=== PATIENT | female | born 1980 | race Caucasian/White ===

== ENCOUNTER 2019-12-02 18:28 | Outpatient (REF) | payer BC, SELFPAY ==
[2019-12-02 19:08] LABS: HCT 37.2 % (36.0-46.0); HGB 11.9 g/dL (11.2-15.7); MCH 24.9 pg (27.0-33.0); MCV 77.8 fL (80-95); Platelet Count 345 10^3/uL (130-400); RBC 4.78 10^6/uL (3.93-5.22); RDW 14.6 % (11.7-14.6); RDW-SD 40.8 fL; WBC 10.88 10^3/uL (4.4-10.8)
[2019-12-02 19:12] LABS: Anion Gap 7.4 mmol/L (3-11); BUN 12 mg/dL (7-18); CO2 27.6 mmol/L (21.0-32.0); CREATININE 0.73 mg/dL (0.55-1.02); Calcium 8.6 mg/dL (8.5-10.1); Chloride 104 mmol/L (98-107); Glucose 91 mg/dL (74-106); Potassium 3.4 mmol/L (3.5-5.1); Sodium 139 mmol/L (136-145)
== END 2019-12-02 18:48 ==
LOC: NCHCN 18:28
PROVIDERS: Visit Provider Nurse Practitioner Family
DX: I10 Essential (primary) hypertension (principal); N93.9 Abnormal uterine and vaginal bleeding, unspecified
CPT/HCPCS: 80048; 85027

== ENCOUNTER 2019-12-14 14:28 | Outpatient (REF) | payer BC, SELFPAY ==
[2019-12-14 21:42] LABS: Total Iron Binding Capacity 458 ug/dL (250-450)
[2019-12-14 21:56] LABS: Calculated LDL 117 mg/dL (<100); Cholesterol 188 mg/dL (<200); Ferritin 14 ng/mL (8-252); HDL Cholesterol 59 mg/dL (40-60); Triglyceride 64 mg/dL (<150)
== END 2019-12-14 14:48 ==
LOC: NCHCN 14:28
PROVIDERS: Visit Provider Nurse Practitioner Family
DX: N93.9 Abnormal uterine and vaginal bleeding, unspecified (principal); Z13.220 Encounter for screening for lipoid disorders; Z00.00 Encounter for general adult medical examination without abnormal findings
CPT/HCPCS: 80061; 82728; 83550

== ENCOUNTER 2020-04-04 02:11 | Outpatient (CLI) | payer BC, SELFPAY ==
--- NOTE | 2020-04-04 | DI.US_ITS ---
EXAM: US PELVIS TRANSVAGINAL CLINICAL HISTORY: ABNL MENSTRUAL BLEEDING,N93.9. TECHNIQUE: Transabdominal and transvaginal pelvic ultrasound was performed using standard protocol. COMPARISON: No exams were available for comparison FINDINGS: KIDNEYS: Kidneys are symmetric in size. No evidence of renal calculi. No evidence of hydronephrosis. No renal mass or cyst identified. UTERUS: Position: Retroverted. Size: 7.5 long by 4.5 AP by 5.7 transverse cm Endometrium: 1.0 cm. The endometrial stripe is homogeneously echogenic. This is within normal limits for the patient's age. Myometrium: A 0.7 x 0.5 x 1.2 cm hypoechoic masses seen in the anterior body. This likely reflects a fibroid. Cervix: Unremarkable. OVARIES: Right: 2.8 x 1.5 x 1.8 cm Cyst or mass: Small functional cysts are present. Left: 2.8 x 1.9 x 1.3 cm Cyst or mass: Small functional cysts are present. DOPPLER: Color: Symmetric and uniform flow to both ovaries. No hyperemia. CUL-DE-SAC: Free fluid: None. Other: None. IMPRESSION: 1. Normal sonographic appearance of the kidneys. 2. Normal-appearing uterus with endometrial stripe within normal limits. Small uterine fibroid. 3. Unremarkable bilateral ovaries. DATA REPOSITORY:
== END 2020-04-04 02:12 | disposition home or self-care (01) ==
LOC: DI 02:11
PROVIDERS: PCP Nurse Practitioner Family; Visit Provider Nurse Practitioner Family
DX: N93.9 Abnormal uterine and vaginal bleeding, unspecified (principal); D25.9 Leiomyoma of uterus, unspecified
CPT/HCPCS: 76830; 76856

== ENCOUNTER 2020-04-11 22:49 | Outpatient (REF) | payer BC, SELFPAY ==
[2020-04-11 22:33] LABS: TSH (W/Ref FT4) 1.68 uIU/mL (0.36-3.74)
== END 2020-04-11 22:50 | disposition home or self-care (01) ==
LOC: NCHCN 22:49
PROVIDERS: PCP Nurse Practitioner Family; Visit Provider Nurse Practitioner Family
DX: N93.9 Abnormal uterine and vaginal bleeding, unspecified (principal)
CPT/HCPCS: 84443

== ENCOUNTER 2020-12-24 02:07 | Outpatient (CLI) | payer BC, SELFPAY ==
[2020-12-24 12:20] LABS: Source Nasal/Nares
[2020-12-24 18:23] LABS: COVID-19 PCR Negative (Negative)
== END 2020-12-24 02:08 | disposition home or self-care (01) ==
LOC: LBO 02:08
PROVIDERS: PCP Nurse Practitioner Family; Visit Provider Obstetrics & Gynecology
DX: Z20.822 Contact with and (suspected) exposure to COVID-19 (principal); Z01.818 Encounter for other preprocedural examination
CPT/HCPCS: 87635

== ENCOUNTER 2020-12-24 02:39 | Outpatient (CLI) | payer BC, SELFPAY ==
[2020-12-24 10:47] LABS: Abs Immature Grans 0.05 10^3/uL (0.0-0.06); Absolute Basophil Count 0.03 10^3/uL (0.0-0.2); Absolute Eosinophil Count 0.19 10^3/uL (0.0-0.7); Absolute Lymphocyte Count 2.97 10^3/uL (1.2-3.4); Absolute Monocyte Count 0.62 10^3/uL (0.1-0.8); Absolute Neutrophil Count 7.47 10^3/uL (1.2-6.7); Basophils % 0.3; Eosinophils % 1.7; HCT 36.7 % (36.0-46.0); HGB 12.1 g/dL (11.2-15.7); Immature Grans % 0.4; Lymphocytes % 26.2; MCH 27.7 pg (27.0-33.0); MPV 10.6 fL (8.0-11.0); Monocytes % 5.5; Neutrophils % 65.9; Nucleated RBC 0 %; Platelet Count 384 10^3/uL (130-400); RBC 4.37 10^6/uL (3.93-5.22); RDW 13.2 % (11.7-14.6); RDW-SD 40.7 fL; WBC 11.33 10^3/uL (4.4-10.8)
== END 2020-12-24 02:40 | disposition home or self-care (01) ==
LOC: LBO 02:39
PROVIDERS: PCP Nurse Practitioner Family; Visit Provider Obstetrics & Gynecology
DX: N93.8 Other specified abnormal uterine and vaginal bleeding (principal); D25.9 Leiomyoma of uterus, unspecified; Z01.818 Encounter for other preprocedural examination; Z01.812 Encounter for preprocedural laboratory examination
CPT/HCPCS: 36415; 86850; 86900; 86901; 85025

== ENCOUNTER 2020-12-26 07:57 | Day surgery (SDC) | payer BC, SELFPAY ==
[2020-12-26 08:19] VITALS: BP 119/76; PULSE 94; RESP 16; TEMP 36.8; O2SAT 100
--- NOTE | 2020-12-26 09:05 | W.ANESPRE ---
General Info Date of Service Date Performed: 12/26/20 Height: 5 ft 2 in Weight: 87.1 kg Body Mass Index (BMI): 35.1 Surgical Procedure: Operation Date: 12/26/20 09:25 Proposed Procedures Side Surgeon p Dilation & Curettage with Hysteroscopy,myosure Skye Smith DO Meds Allergies and Home Medications Allergies Allergy/AdvReac Type Severity Reaction Status Date / Time No Known Allergies Allergy Verified 12/26/20 08:10 Home Medication Medication Instructions Recorded chlorthalidone 25 mg tablet 25 mg PO DAILY 05/03/20 ferrous sulfate 325 mg (65 mg 325 mg PO TID 05/03/20 iron) tablet losartan 100 mg tablet 100 mg PO HS 05/03/20 Current Visit Medications: Current Medications Generic Name Dose Route Start Last Admin Trade Name Freq PRN Reason Stop Dose Admin Ringer's Solution 1,000 mls @ 125 mls/hr 12/26/20 06:00 IV 01/24/21 23:59 INFUSION YEIMY IV Miscellaneous Supplies 1 each 12/26/20 06:00 Iv Access IV 01/24/21 23:59 DIRECTED YEIMY Sodium Chloride 0 ml 12/26/20 06:00 Normal Saline Flush 10 Ml Syr IV 01/24/21 23:59 PRN PRN Sodium Chloride 0 ml 12/26/20 06:00 Normal Saline 10 Ml Vial IJ 01/24/21 23:59 DIRECTED PRN Sterile Water 0 ml 12/26/20 06:00 Water,Injection,Sterile 10 Ml Vial IJ 01/24/21 23:59 DIRECTED PRN PFSH Active Problems Active Problems: Problem Status Onset Code Menstrual periods, abnormal N92.6 Uterine fibroid D25.9 Abnormal uterine bleeding N93.9 Anemia D64.9 Hypertension I10 Medical History Medical History (Updated 12/26/20 @ 08:10 by Torri Gómez) Abnormal uterine bleeding Anemia History of postoperative nausea Hypertension Uterine fibroid Surgical History Surgical History (Updated 12/26/20 @ 08:10 by Torri Gómez) Hx of cholecystectomy Tobacco Smoking/Tobacco Use Status: Never Alcohol Alcohol Intake: never Substance Use Substance use: Never Substance use type: does not use Vital Signs and Lab Results Vital Signs Most Recent Vital Signs in EMR: Most Recent Vital Signs Temp Pulse Resp BP Pulse Ox 36.8 C 94 H 16 119/76 100 12/26/20 08:19 12/26/20 08:19 12/26/20 08:19 12/26/20 08:19 12/26/20 08:19 Point of Care Results Point of Care Results: POC- Test(urine) Negative 12/26/20 08:27 Lab Results Blood Type / Crossmatch: Patient ABO/Rh A Positive 12/24/20 09:58 12/24/20 Antibody Screen NEGATIVE 12/24/20 09:58 12/24/20 Complete Blood Count: White Blood Count 11.33 10^3/uL (4.4-10.8) H 12/24/20 09:58 12/24/20 Red Blood Count 4.37 10^6/uL (3.93-5.22) 12/24/20 09:58 12/24/20 Hemoglobin 12.1 g/dL (11.2-15.7) 12/24/20 09:58 12/24/20 Hematocrit 36.7 % (36.0-46.0) 12/24/20 09:58 12/24/20 Platelet Count 384 10^3/uL (130-400) 12/24/20 09:58 12/24/20 Complete Metabolic Panel: No Data to Display Liver Function Panel: No Data to Display Coagulation Panel: No Data to Display Cardiac Panel: No Data to Display Arterial Blood Gas: No Data to Display Venous Blood Gas: No Data to Display Pancreas Panel: No Data to Display Thyroid Panel: No Data to Display Infectious Disease: Coronavirus (COVID-19)(PCR) Negative (Negative) 12/24/20 11:10 12/24/20 Coronavirus 2019 Source Nasal/Nares 12/24/20 11:10 12/24/20 Blood Cultures: No Data to Display Toxicology Panel: No Data to Display Panel: No Data to Display Anesthesia Assessment and Plan Anesthesia History Personal History: PONV Family History: No Family History of Anesthesia Complications Exercise Tolerance Exercise Tolerance: Metabolic Equivalents>4 Pertinent Negatives Pertinent Negatives: No Symptoms of GERD, No Major Cardiovascular Symptoms or Complaints, No Major Pulmonary Symptoms or Complaints and No History of CVA/TIA Cardiac & Pulmonary Exam Cardiac Exam: Normal S1/S2 Heart Sounds Pulmonary Exam: Clear Bilateral Breath Sounds Airway Exam Known Difficult Airway: No Mallampati Class: 1 Mouth Opening: Normal (> 3cm) Thyromental Distance: Greater than 3 cm Neck Range of Motion: Full ROM Neck Circumference: Normal Teeth Condition: Normal Dentition ASA Classification ASA Score: ASA 2 Emergency Case?: No NPO Status NPO Status: NPO Clears >2 hours, Solids >8 hours Status Status: Negative HCG Anesthesia Plan Resuscitation Status: Full Code Anesthesia Technique: General Anesthesia Airway Planned: Natural Airway Monitors Used: Standard Monitors
[2020-12-26] MEDS: Lactated Ringers 1,000 ML 125 ML IV (09:15)
[2020-12-26 09:23] VITALS: BMI 35.1
--- NOTE | 2020-12-26 10:01 | ENDO_PTH ---
PATIENT: Cynthia Zhao LOC: [facility] U#:[id number] AGE/SX: 40/F ROOM: RE12/26/[address]: Skye Smith DO : 1980 BED: DIS: 12/26/2020 SPEC #: [id number] RECD: 12/26/20 12:19 STATUS: DEANGELO REQ #: [id number] KRYSTIN: 12/26/20 10:[address]: Skye Smith DEPT: Surgical Specimen RECD BY: Alesia Padron ENTERED: 12/26/20 12:20 SP TYPE: Endo OTHR DR: Leeann Rebolledo Tissues: 1 - ENDOCERVICAL BX/CURRETTE 2 - ENDOMETRIUM BX/CURRETTE Procedures: GROSS AND MICRO LEVEL 4 Comments: [id number]
--- NOTE | 2020-12-26 10:32 | W.PM.OP ---
Date of service: 12/26/20 Time of Service: 10:32 Operative Note Operative Note DATE OF PROCEDURE: 12/26/20 PRE-OP DIAGNOSIS: Abnormal uterine bleeding with suspected 1 cm fibroid POST-OP DIAGNOSIS: same PROCEDURE: Hysteroscopy with dilation and curettage SURGEON: Skye Smith ANESTHESIA TYPE: MAC Refer to Anesthesia Record ESTIMATED BLOOD LOSS: 10 PATHOLOGY: other (1. Endocervical curettage 2. Endometrial curettage) COMPLICATIONS: None Patient was transported to: same day Patient's condition: stable Indications: Ongoing abnormal uterine bleeding and suspected fibroid Findings: Thickened though regular endometrial cavity. Fundal uterine septum. No evidence of submucosal fibroid Procedure Description: Patient was taken the operating suite with an IV running. She was placed in the dorsal supine position and anesthesia administered via monitored anesthesia care. She was then placed in the dorsal lithotomy position in yellowfin stirrups and prepped and draped in the usual sterile fashion. Exam under anesthesia revealed a uterus that was midline and mobile without evidence of adnexal masses. Straight catheterization was performed for 150 cc of clear yellow urine. Speculum was placed into the vaginal vault and a single-tooth tenaculum used to grasp the anterior lip of the. Cervical os dilated to the point that a 5.6 mm operative hysteroscope with MyoSure device could be inserted. Under direct visualization the entire endometrial cavity was visualized. Cavity appeared plush, though regular. There was suspicion of a needed fundal septum that is small in nature. There was no evidence of polyp or submucous fibroid noted. At this point, the hysteroscopic portion of the procedure was terminated and hysteroscope removed. Total fluid deficit was 80 mL. A gentle sharp curettage of the endocervix, followed by the endometrium was performed. At this point tenaculum was removed and site hemostatic. Speculum were removed and the patient was returned to the dorsal supine position. She awoke from anesthesia without difficulty. She was taken to recovery room in stable condition. Findings: [place] endometrium and small area of uterine septation at the fundus. No discrete subcu fibroid noted EBL: 10 mL Complications: None apparent Pathology: 1. Endocervical curettage 2. Endometrial curettage
[2020-12-26 10:34] VITALS: BP 115/77; PULSE 82; RESP 16; TEMP 36; O2SAT 99
[2020-12-26 11:02] VITALS: BP 114/86; PULSE 80; RESP 16; TEMP 36.1; O2SAT 99
--- NOTE | 2020-12-26 12:25 | W.ANESPOSTOP ---
Postoperative Evaluation Date, Time and Location Date Performed: 12/26/20 Time Performed: 11:00 Patient Location: Day Surgery Unit Vital Signs Most Recent Imported Vital Signs: Most Recent Vital Signs Temp Pulse Resp BP Pulse Ox 36.1 C L 80 16 114/86 99 12/26/20 11:02 12/26/20 11:02 12/26/20 11:02 12/26/20 11:02 12/26/20 11:02 Pain Score Most Recent Pain Score: Most Recent Pain Score Pain Level 0 12/26/20 11:02 Assessment Mental Status: Awake (Alert & Oriented to Patient Baseline) Airway and Respiratory Function: Patent airway with normal (patient baseline) respiratory exam Cardiovascular Function: Hemodynamically Stable Hydration Status: Adequately Hydrated Nausea & Vomiting: No Nausea or Vomiting Pain: Pt. Denies Any Pain Peripheral Nerve Block: Patient did not receive a nerve block
== END 2020-12-26 11:28 | disposition home or self-care (01) ==
PROVIDERS: PCP Nurse Practitioner Family; Visit Provider Obstetrics & Gynecology
PROC: 0UDB8ZZ Extraction of Endometrium, Via Natural or Artificial Opening Endoscopic (ICD-10-PCS; CPT 58558; principal; 2020-12-26 09:15)
DX: N93.9 Abnormal uterine and vaginal bleeding, unspecified (principal); I10 Essential (primary) hypertension; D64.9 Anemia, unspecified; Z98.890 Other specified postprocedural states
CPT/HCPCS: 58558; 81025; 88305; J1100; J1885; J2001; J2250; J2405

== ENCOUNTER 2021-01-17 17:01 | Outpatient (REF) | payer BC, SELFPAY ==
[2021-01-17 19:44] LABS: Anion Gap 9.2 mmol/L (3-11); BUN 19 mg/dL (7-18); CO2 30.8 mmol/L (21.0-32.0); Calcium 9.1 mg/dL (8.5-10.1); Chloride 103 mmol/L (98-107); Glucose 77 mg/dL (74-106); Potassium 3.3 mmol/L (3.5-5.1); Sodium 143 mmol/L (136-145)
== END 2021-01-17 17:02 | disposition home or self-care (01) ==
LOC: NCHCN 17:01
PROVIDERS: PCP Nurse Practitioner Family; Visit Provider Nurse Practitioner Family
DX: I10 Essential (primary) hypertension (principal)
CPT/HCPCS: 80048

== ENCOUNTER 2022-03-31 11:35 | Outpatient (REF) | payer BC, SELFPAY ==
--- NOTE | 2022-03-31 08:20 | PAPFT_PTH ---
[id number]GE[facility]SX: 41/F ROOM: RE03/31/[address]: Leeann Rebolledo : 1980 BED: DIS: 03/31/2022 SPEC #: [id number] RECD: 03/31/22 17:41 STATUS: DEANGELO REQ #: [id number] KRYSTIN: 03/31/22 08:[address]: Leeann Rebolledo DEPT: [facility] Cytology RECD BY: Alesia Padron Tissues: 1 - CX/ENDOCX FOR PAP SMEARS Procedures: PAP THIN PREP/UVM Screening HPV DNA PROBE Comments: [id number]
[2022-03-31 16:31] LABS: HCT 37.6 % (36.0-46.0); HGB 12.3 g/dL (11.2-15.7); MCH 27.2 pg (27.0-33.0); MCHC 32.7 % (32.0-36.0); MCV 83 fL (80-95); MPV 10.7 fL (8.0-11.0); Platelet Count 345 10^3/uL (130-400); RBC 4.53 10^6/uL (3.93-5.22); RDW 14.2 % (11.7-14.6); RDW-SD 42.5 fL; WBC 12.74 10^3/uL (4.4-10.8)
[2022-03-31 16:54] LABS: Anion Gap 9.8 mmol/L (3-11); BUN 16 mg/dL (7-18); CO2 28.2 mmol/L (21.0-32.0); CREATININE 1.2 mg/dL (0.55-1.02); Calcium 9.7 mg/dL (8.5-10.1); Chloride 101 mmol/L (98-107); Glucose 96 mg/dL (74-106); Potassium 3.4 mmol/L (3.5-5.1); Sodium 139 mmol/L (136-145)
== END 2022-03-31 11:36 | disposition home or self-care (01) ==
LOC: NCHCN 11:35
PROVIDERS: PCP Nurse Practitioner Family; Visit Provider Nurse Practitioner Family
DX: Z00.00 Encounter for general adult medical examination without abnormal findings (principal); D50.9 Iron deficiency anemia, unspecified; I10 Essential (primary) hypertension; Z12.4 Encounter for screening for malignant neoplasm of cervix; Z01.419 Encounter for gynecological examination (general) (routine) without abnormal findings
CPT/HCPCS: 80048; 85027; 88142; 87624

== ENCOUNTER 2022-06-30 15:28 | Outpatient (REF) | payer BC, SELFPAY ==
[2022-06-30 16:13] LABS: Abs Immature Grans 0.07 10^3/uL (0.0-0.06); Absolute Basophil Count 0.04 10^3/uL (0.0-0.2); Absolute Eosinophil Count 0.15 10^3/uL (0.0-0.7); Absolute Monocyte Count 0.49 10^3/uL (0.1-0.8); Basophils % 0.3; Eosinophils % 1.3; HCT 35.7 % (36.0-46.0); HGB 11.8 g/dL (11.2-15.7); Immature Grans % 0.6; Lymphocytes % 21.4; MCH 28.2 pg (27.0-33.0); MCHC 33.1 % (32.0-36.0); MCV 85 fL (80-95); MPV 11.4 fL (8.0-11.0); Monocytes % 4.1; Neutrophils % 72.3; Platelet Count 280 10^3/uL (130-400); RBC 4.19 10^6/uL (3.93-5.22); RDW 13.9 % (11.7-14.6); RDW-SD 42.7 fL; WBC 11.89 10^3/uL (4.4-10.8)
[2022-06-30 16:18] LABS: Absolute Lymphocyte Count 2.54 10^3/uL (1.2-3.4)
[2022-06-30 17:05] LABS: Anion Gap 11.5 mmol/L (3-11); BUN 22 mg/dL (7-18); CO2 20.5 mmol/L (21.0-32.0); CREATININE 1.1 mg/dL (0.55-1.02); Calcium 9.4 mg/dL (8.5-10.1); Chloride 106 mmol/L (98-107); Estimated GFR 63.54 (mL/min/1.73m2); Glucose 105 mg/dL (74-106); Potassium 3.8 mmol/L (3.5-5.1); Sodium 138 mmol/L (136-145)
== END 2022-06-30 15:29 | disposition home or self-care (01) ==
LOC: NCHCN 15:28
PROVIDERS: PCP Nurse Practitioner Family; Visit Provider Nurse Practitioner Family
DX: D50.9 Iron deficiency anemia, unspecified (principal); I10 Essential (primary) hypertension
CPT/HCPCS: 80048; 85025

== ENCOUNTER 2023-04-06 18:01 | Outpatient (REF) | payer BC, SELFPAY ==
[2023-04-06 19:09] LABS: Abs Immature Grans 0.06 10^3/uL (0.0-0.06); Absolute Eosinophil Count 0.12 10^3/uL (0.0-0.7); Absolute Lymphocyte Count 2.37 10^3/uL (1.2-3.4); Absolute Monocyte Count 0.71 10^3/uL (0.1-0.8); Basophils % 0.3; HCT 40.4 % (36.0-46.0); Immature Grans % 0.5; Lymphocytes % 20.6; MCH 27.1 pg (27.0-33.0); MCHC 32.2 % (32.0-36.0); MCV 84 fL (80-95); Monocytes % 6.2; Neutrophils % 71.4; RBC 4.79 10^6/uL (3.93-5.22); RDW 13.8 % (11.7-14.6); RDW-SD 42.7 fL; WBC 11.51 10^3/uL (4.4-10.8)
[2023-04-06 19:13] LABS: Anion Gap 10.4 mmol/L (3-11); BUN 15 mg/dL (7-18); CO2 21.6 mmol/L (21.0-32.0); CREATININE 1.1 mg/dL (0.55-1.02); Calcium 9.6 mg/dL (8.5-10.1); Chloride 108 mmol/L (98-107); Estimated GFR 63.54 (mL/min/1.73m2); Glucose 97 mg/dL (74-106); Potassium 4.6 mmol/L (3.5-5.1); Sodium 140 mmol/L (136-145)
[2023-04-06 19:30] LABS: Hemoglobin A1C 5.1 % (<5.7)
[2023-04-06 19:34] LABS: Absolute Basophil Count 0.03 10^3/uL (0.0-0.2); Absolute Neutrophil Count 8.22 10^3/uL (1.2-6.7)
[2023-04-06 19:52] LABS: Vitamin D 25 Total 13.5 ng/mL (30-100)
== END 2023-04-06 18:02 | disposition home or self-care (01) ==
LOC: NCHCN 18:01
PROVIDERS: PCP Nurse Practitioner Family; Visit Provider Nurse Practitioner Family
DX: Z00.00 Encounter for general adult medical examination without abnormal findings (principal); I10 Essential (primary) hypertension; D72.829 Elevated white blood cell count, unspecified; E55.9 Vitamin D deficiency, unspecified; Z13.1 Encounter for screening for diabetes mellitus
CPT/HCPCS: 80048; 82306; 83036; 85025

== ENCOUNTER → 2023-04-10 01:25 | Outpatient (CLI) | payer BC, SELFPAY ==
--- NOTE | 2023-04-10 | DI.US_ITS ---
Exam(s) US BREAST LT COMPLETE US BREAST RT COMPLETE MG MAMMO DIAGNOSTIC BI EXAM: MG MAMMO DIAGNOSTIC BI AND BILATERAL COMPLETE BREAST ULTRASOUND CLINICAL HISTORY: LUMP LEFT BREAST N63.0. TECHNIQUE: BILATERAL CC AND MLO mammographic images were obtained with 3D tomosynthesis technique an d utilizing computer aided detection (CAD). Also performed additional spot compression view of the RIGHT breast because of finding of nodular den sity in the right breast on today's mammogram. Complete bilateral breast ultrasound was performed including all 4 quadrants of both breasts as well as both axillary regions. COMPARISON: None. This is a baseline mammogram on a 42-year-old patient we did not present with a l ump but whose provider apparently felt a lump in the left breast. The patient denies feeling this gail mp. FINDINGS: DIAGNOSTIC BILATERAL MAMMOGRAM: No significant mammographic findings in left breast. In the right breast there is a small nodular density in the upper-outer quadrant. Additional spot co mpression view reveals that this nodule persists. No malignant-appearing microcalcification groups in either breast. No significant architectural dist ortion or skin thickening-retraction. BILATERAL COMPLETE BREAST ULTRASOUND: LEFT BREAST: No evidence of solid or significant cystic lesions in all 4 quadrants. Left axilla is negative for adenopathy. RIGHT BREAST: There is a solitary finding which corresponds to the finding in the right breast on paty pacheco's mammogram, this being a 3 millimeter benign microcyst at the 11 o'clock position. Most importan tly, there are no solid lesions in either breast. Scanning of the right axilla is negative for adenopathy. IMPRESSION: Benign findings. There are no findings on mammogram and ultrasound in the left breast There is a solitary 3 millimeter benign microcyst at the 11 o'clock position of the right breast Appropriate follow-up is to keep this patient on a yearly mammogram schedule, with earlier imaging if a self detected breast change is noted.. The patient was informed of the findings and follow-up recommendations by myself prior to leaving the department today. BI-RADS Category 2 - Benign Findings Breast Density - Category B - Scattered areas of fibroglandular density Breast density Category C or D implies that the patient has dense breast tissue. Dense breast tissue can make it harder to find cancer on a mammogram. Dense breast tissue is also associated with an incr eased risk of breast cancer. This information about the result of the mammogram report was provided to the patient to raise their awareness. Use this report when you speak with the patient about their risks for breast cancer, which includes their family history. At that time, you may recommend additional screening tests (Ultrasoun d or MRI) as these tests may add significant information. A negative radiographic report should not delay biopsy if a dominant or clinically suspicious mass is present. Up to ten percent of cancers are not identified on mammography. A negative report may reinforce clinical impression. Adenosis and dense breasts may obscure an underlying neoplasm. False positive reports average 6 to 10%. Patient will receive a letter notifying them of these results.
== END ==
PROVIDERS: PCP Nurse Practitioner Family; Visit Provider Nurse Practitioner Family
DX: Z12.31 Encounter for screening mammogram for malignant neoplasm of breast (principal); R92.8 Other abnormal and inconclusive findings on diagnostic imaging of breast
CPT/HCPCS: 76642; 77062; 77066; G0279

== ENCOUNTER 2023-10-08 22:02 | Outpatient (REF) | payer BC, SELFPAY ==
[2023-10-08 16:42] LABS: Anion Gap 9.9 mmol/L (3-11); BUN 16 mg/dL (7-18); CO2 28.1 mmol/L (21.0-32.0); CREATININE 1.2 mg/dL (0.55-1.02); Calcium 9.4 mg/dL (8.5-10.1); Chloride 101 mmol/L (98-107); Estimated GFR 56.89 (mL/min/1.73m2); Glucose 114 mg/dL (74-106); Potassium 3.7 mmol/L (3.5-5.1); Sodium 139 mmol/L (136-145); Vitamin D 25 Total 30.7 ng/mL (30-100)
== END 2023-10-08 22:03 | disposition home or self-care (01) ==
LOC: NCHCN 22:02
PROVIDERS: PCP Nurse Practitioner Family; Visit Provider Nurse Practitioner Family
DX: E55.9 Vitamin D deficiency, unspecified (principal); R79.89 Other specified abnormal findings of blood chemistry
CPT/HCPCS: 80048; 82306

== ENCOUNTER 2024-01-01 15:46 | Outpatient (REF) | payer BC, SELFPAY ==
[2024-01-01 18:24] LABS: Anion Gap 11.1 mmol/L (3-11); BUN 23 mg/dL (7-18); CO2 26.9 mmol/L (21.0-32.0); CREATININE 1.3 mg/dL (0.55-1.02); Calcium 9.6 mg/dL (8.5-10.1); Chloride 104 mmol/L (98-107); Estimated GFR 51.68 (mL/min/1.73m2); Glucose 94 mg/dL (74-106); Sodium 142 mmol/L (136-145)
== END 2024-01-01 15:47 | disposition home or self-care (01) ==
LOC: NCHCN 15:46
PROVIDERS: PCP Nurse Practitioner Family; Visit Provider Nurse Practitioner Family
DX: R79.89 Other specified abnormal findings of blood chemistry (principal)
CPT/HCPCS: 80048

== ENCOUNTER 2024-12-30 12:31 | Outpatient (REF) | payer BC, SELFPAY ==
[2024-12-30 16:02] LABS: Abs Immature Grans 0.08 10^3/uL (0.0-0.06); HCT 33.3 % (36.0-46.0); HGB 11.1 g/dL (11.2-15.7); Immature Grans % 0.6 %; MCH 27.5 pg (27.0-33.0); MCHC 33.3 % (32.0-36.0); MCV 82 fL (80-95); MPV 10.8 fL (8.0-11.0); Platelet Count 396 10^3/uL (130-400); RBC 4.04 10^6/uL (3.93-5.22); RDW 13.6 % (11.7-14.6); RDW-SD 41.1 fL; WBC 13.05 10^3/uL (4.4-10.8)
[2024-12-30 16:07] LABS: ALT 20 U/L (14-59); AST 12 U/L (15-37); Albumin 3.9 g/dL (3.4-5.0); Alkaline Phosphatase 103 U/L (46-116); Anion Gap 12.7 mmol/L (3-11); BUN 21 mg/dL (7-18); Bilirubin, Total 0.3 mg/dL (0.2-1.0); CO2 26.3 mmol/L (21.0-32.0); Calcium 9.6 mg/dL (8.5-10.1); Chloride 100 mmol/L (98-107); Cholesterol 183 mg/dL (<200); Glucose 119 mg/dL (74-106); HDL Cholesterol 45 mg/dL (>or=50); Sodium 139 mmol/L (136-145); Total Protein 7.5 g/dL (6.4-8.2)
[2024-12-30 16:35] LABS: Hemoglobin A1C 5.1 % (<5.7)
[2024-12-30 17:23] LABS: Potassium 2.9 mmol/L (3.5-5.1)
[2025-01-02 09:42] LABS: Hepatitis C Ab w Rflx HCV PCR Negative (Negative)
[2025-01-02 09:55] LABS: HIV-1/2 Ag & Ab Screen Negative (Negative)
== END 2024-12-30 12:32 | disposition home or self-care (01) ==
LOC: NCHCN 12:31
PROVIDERS: PCP Nurse Practitioner Family; Visit Provider Nurse Practitioner Family
DX: E66.9 Obesity, unspecified (principal); D72.829 Elevated white blood cell count, unspecified; Z11.4 Encounter for screening for human immunodeficiency virus [HIV]; I10 Essential (primary) hypertension
CPT/HCPCS: 80053; 80061; 86803; 87389; 83036; 85025

== ENCOUNTER 2025-01-23 07:42 | Outpatient (CLI) | payer BC, SELFPAY ==
[2025-01-23 07:41] LABS: Abs Immature Grans 0.08 10^3/uL (0.0-0.06); HCT 36.0 % (36.0-46.0); HGB 11.9 g/dL (11.2-15.7); Immature Grans % 0.7 %; MCH 27.1 pg (27.0-33.0); MCHC 33.1 % (32.0-36.0); MCV 82 fL (80-95); MPV 9.7 fL (8.0-11.0); Platelet Count 371 10^3/uL (130-400); RBC 4.39 10^6/uL (3.93-5.22); RDW 13.8 % (11.7-14.6); RDW-SD 41.1 fL; WBC 11.53 10^3/uL (4.4-10.8)
[2025-01-23 08:23] LABS: Ferritin 48 ng/mL (7-271)
[2025-01-23 09:18] LABS: Iron 43 ug/dL (50-170); Total Iron Binding Capacity 389 ug/dL (250-425)
== END 2025-01-23 07:43 | disposition home or self-care (01) ==
LOC: LBO 07:42
PROVIDERS: PCP Nurse Practitioner Family; Visit Provider Nurse Practitioner Family
DX: D50.9 Iron deficiency anemia, unspecified (principal)
CPT/HCPCS: 36415; 82728; 83540; 83550; 85025

== ENCOUNTER → 2025-02-06 00:47 | Outpatient (CLI) | payer BC, SELFPAY ==
--- NOTE | 2025-02-06 | DI.MAMMO_ITS ---
Exam(s) MAMMO SCREENING EXAM: MAMMO SCREENING CLINICAL HISTORY: ADULT MED EXAM Z00.00 SCREENING MAMMO TECHNIQUE: Mammograms were interpreted according to the usual protocol including computer analysis with CAD system, tomosynthesis and C-view imaging. COMPARISON: 2023 FINDINGS: The breasts are composed of scattered fibroglandular densities, Breast Density category B. No suspicious masses or suspicious microcalcifications are seen. No skin thickening or abnormal axillary lymph nodes are seen. There has been no significant change from prior exams. IMPRESSION: BI-RADS Category 1, Negative mammogram Yearly screening mammography is recommended. Breast Density - Category B - There are scattered areas of fibroglandular density. Breast density Category C or D implies that the patient has dense breast tissue. Dense breast tissue can make it harder to find cancer on a mammogram. Dense breast tissue is also associated with an increased risk of breast cancer. This information about the result of the mammogram report was provided to the patient to raise their awareness. Use this report when you speak with the patient about their risks for breast cancer, which includes their family history. At that time, you may recommend additional screening tests (Ultrasound or MRI) as these tests may add significant information. A negative radiographic report should not delay biopsy if a dominant or clinically suspicious mass is present. Up to ten percent of cancers are not identified on mammography. A negative report may reinforce clinical impression. Adenosis and dense breasts may obscure an underlying neoplasm. False positive reports average 6 to 10%. Patient will receive a letter notifying them of these results.
== END ==
LOC: DI 00:47
PROVIDERS: PCP Nurse Practitioner Family; Visit Provider Nurse Practitioner Family
DX: Z12.31 Encounter for screening mammogram for malignant neoplasm of breast (principal); R92.323 Mammographic fibroglandular density, bilateral breasts
CPT/HCPCS: 77063; 77067